=== PATIENT | female | born 1990 | race Caucasian/White ===

== ENCOUNTER 2019-03-24 12:42 | Emergency (ER) | payer SELFPAY ==
--- NOTE | 2019-03-24 14:29 | ED Physician Documentation ---
PD HPI ABD PAIN - Stated complaint Stated Complaint: BODY ACHES - Chief complaint Chief Complaint: Abd Pain - History obtained from History obtained from: Patient - History of Present Illness Timing - onset: Other (28-year-old woman with PCOS presents with multiple complaints, most pressing is that for the last 48 hours she is had body aches and low-grade fevers and chills and wonders if she might have influenza. Less pressing is for the last 2 and half weeks she has had left pelvic pain consistent with prior episodes of PCOS. She is sexually active. No cramping bleeding or discharge.) Review of Systems Constitutional: reports: Reviewed and negative Nose: reports: Reviewed and negative Throat: reports: Reviewed and negative PD PAST MEDICAL HISTORY - Past Medical History Respiratory: Asthma Psych: Bipolar disorder, Panic attacks - Past Surgical History Past Surgical History: Yes HEENT: Tonsil/Adenoidectomy - Present Medications Home Medications: Ambulatory Orders Medication Instructions Recorded Confirmed Albuterol Sulfate [Ventolin Hfa] 2 puffs IH Q4HR PRN #1 [email or web address] 07/22/15 10/05/15 Fluticasone/Salmeterol 100/50 1 each IH BID #1 disk.w.dev 07/22/15 10/05/15 [Advair 100 Mcg/50 Mcg] Alprazolam [Xanax] 0.5 mg PO 10/05/15 [place] 300 mg PO TID 10/05/15 10/05/15 medroxyPROGESTERone [Provera] 2.5 mg PO DAILY #30 tablet 03/24/19 - Allergies Allergies/Adverse Reactions: Allergies Allergy/AdvReac Type Severity Reaction Status Date / Time doxycycline Allergy Hives Verified 03/24/19 12:49 prednisone Allergy Hives Verified 03/24/19 12:49 Sulfa (Sulfonamide Allergy Nausea Verified 03/24/19 12:49 Antibiotics) - Social History Does the pt smoke?: Yes Smoking Status: Current every day smoker Does the pt drink ETOH?: Yes Does the pt have substance abuse?: No - Immunizations Immunizations are current?: Yes PD ED PE NORMAL - Vitals Vital signs reviewed: Yes - General General: Alert and oriented X 3, No acute distress - Respiratory Respiratory: No respiratory distress, Clear bilaterally - Abdomen Abdomen: Normal bowel sounds, Soft, Non tender - Derm Derm: No rash - Neuro Neuro: Alert and oriented X 3, Normal speech Results - Vitals Vitals: Vital Signs - 24 hr 03/24/19 03/24/19 12:49 14:36 Temperature 37.0 C 37.2 C Heart Rate 76 85 Respiratory 14 18 Rate Blood Pressure 141/79 H 140/84 H O2 Saturation 100 99 Oxygen O2 Source Room air - Labs Labs: Laboratory Tests 03/24/19 03/24/19 03/24/19 12:52 13:04 13:04 WBC RBC Hgb Hct MCV MCH MCHC RDW Plt Count MPV Neut # (Auto) Lymph # (Auto) [place] # (Auto) Eos # (Auto) Baso # (Auto) Absolute Nucleated RBC Nucleated RBC % Sodium Potassium Chloride Carbon Dioxide Anion Gap BUN Creatinine Estimated GFR (MDRD) Glucose Calcium Total Bilirubin AST ALT Alkaline Phosphatase Total Protein Albumin Globulin Albumin/Globulin Ratio Lipase Urine Color YELLOW Urine Clarity CLEAR Urine pH 6.0 Ur Specific [place] <=1.005 <1.005 Urine Protein NEGATIVE Urine Glucose (UA) NEGATIVE Urine Ketones NEGATIVE Urine Occult Blood NEGATIVE Urine Nitrite NEGATIVE Urine Bilirubin NEGATIVE Urine Urobilinogen 0.2 (NORMAL) Ur Leukocyte Esterase NEGATIVE Ur Microscopic Review NOT INDICATED Urine Culture Comments NOT INDICATED Urine HCG, Qual NEGATIVE Influenza A (Rapid) Negative Influenza B (Rapid) Negative 03/24/19 03/24/19 14:40 14:40 WBC 10.6 RBC 5.17 Hgb 13.2 Hct 41.0 MCV 79.3 L MCH 25.5 L MCHC 32.2 RDW 15.9 H Plt Count 253 MPV 10.8 Neut # (Auto) 6.2 Lymph # (Auto) 3.4 [place] # (Auto) 0.8 Eos # (Auto) 0.1 Baso # (Auto) 0.1 Absolute Nucleated RBC 0.00 Nucleated RBC % 0.0 Sodium 139 Potassium 3.5 Chloride 103 Carbon Dioxide 24 Anion Gap 12.0 BUN 10 Creatinine 0.9 Estimated GFR (MDRD) 75 L Glucose 91 Calcium 8.9 Total Bilirubin 1.0 AST 19 ALT 20 Alkaline Phosphatase 62 Total Protein 7.0 Albumin 4.5 Globulin 2.5 Albumin/Globulin Ratio 1.8 Lipase 22 Urine Color Urine Clarity Urine pH Ur Specific [place] Urine Protein Urine Glucose (UA) Urine Ketones Urine Occult Blood Urine Nitrite Urine Bilirubin Urine Urobilinogen Ur Leukocyte Esterase Ur Microscopic Review Urine Culture Comments Urine HCG, Qual Influenza A (Rapid) Influenza B (Rapid) PD MEDICAL DECISION MAKING - ED course ED course: 28-year-old woman with an exacerbation of chronic pelvic pain due to PCOS, declined pain medication but did want to go onto Depo-Provera. We do not have Depo-Provera in the hospital and we settled on just doing Provera until she can follow-up. She also needed a work note that said she could return to work in the setting of a viral URI with negative flu swab. Departure - Departure Disposition: 01 Home, Self Care Clinical Impression: PCOS (polycystic ovarian syndrome), Pelvic pain, Viral URI Condition: Good Record reviewed to determine appropriate education?: Yes Instructions: ED Viral Syndrome Follow-Up: [facility] [Provider Group] Prescriptions: medroxyPROGESTERone [Provera] 2.5 mg PO DAILY #30 tablet Comments: Call your doctor to arrange a follow-up appointment, make the next available appointment. In the interim, return anytime if worse or if new symptoms develop. Forms: Activity restrictions
[2019-03-24 14:33] LABS: BILIRUBIN,URINE NEGATIVE (NEGATIVE); GLUCOSE, URINE (UA) NEGATIVE (NEGATIVE); KETONES,URINE (UA) NEGATIVE (NEGATIVE); LEUKOCYTE ESTERASE, URINE NEGATIVE (NEGATIVE); NITRITE,URINE NEGATIVE (NEGATIVE); OCCULT BLOOD,URINE NEGATIVE (NEGATIVE); PROTEIN,URINE NEGATIVE (NEGATIVE); UROBILINOGEN,URINE 0.2 (NORMAL) E.U./dL (NORMAL)
[2019-03-24 14:37] VITALS: BP 140/84
[2019-03-24 14:38] LABS: CLARITY,URINE CLEAR (CLEAR)
[2019-03-24 14:39] LABS: HCG UR QUAL NEGATIVE
[2019-03-24 14:46] LABS: BASOPHILS # (AUTO) 0.1 10^3/uL (0.0-0.1); BASOPHILS % (AUTO) 0.6 %; EOSINOPHILS # (AUTO) 0.1 10^3/uL (0.0-0.7); EOSINOPHILS % (AUTO) 0.5 %; HGB - HEMOGLOBIN 13.2 g/dL (12.0-16.0); LYMPHOCYTES # (AUTO) 3.4 10^3/uL (1.5-3.5); MEAN CORPUSCULAR HEMOGLOBIN 25.5 pg (27.0-31.0); MEAN CORPUSCULAR HGB CONC 32.2 g/dL (32.0-36.0); MEAN CORPUSCULAR VOLUME 79.3 fL (81.0-99.0); MEAN PLATELET VOLUME 10.8 fL (7.9-10.8); MONOCYTES # (AUTO) 0.8 10^3/uL (0.0-1.0); MONOCYTES % (AUTO) 7.4 %; NEUTROPHILS # (AUTO) 6.2 10^3/uL (1.5-6.6); NEUTROPHILS % (AUTO) 58.8 %; PLT - PLATELET COUNT 253 10^3/uL (130-450); RED BLOOD COUNT 5.17 10^6/uL (4.20-5.40); RED CELL DISTRIBUTION WIDTH 15.9 % (12.0-15.0); WHITE BLOOD COUNT 10.6 x10^3/uL (4.8-10.8)
[2019-03-24 15:00] LABS: ALBUMIN 4.5 g/dL (3.2-5.5); ALBUMIN/GLOBULIN RATIO 1.8 (1.0-2.2); CALCIUM 8.9 mg/dL (8.5-10.3); CREATININE 0.9 mg/dL (0.4-1.0)
[2019-03-24 19:38] LABS: TRICHOMONAS VAGINALIS DNA NEGATIVE (NEGATIVE)
== END 2019-03-24 15:12 | disposition home or self-care (01) ==
LOC: ED 12:42
DX: E28.2 Polycystic ovarian syndrome (principal); R10.2 Pelvic and perineal pain; J06.9 Acute upper respiratory infection, unspecified; F17.200 Nicotine dependence, unspecified, uncomplicated
CPT/HCPCS: 36415; 80053; 81001; 81003; 81025; 83690; 84703; 85025; 87086; 87275; 87276; 87491; 87591; 87661; 99283; 99284